=== PATIENT | male | born 1980 | race Caucasian/White ===

== ENCOUNTER 2020-04-03 10:02 | Outpatient (REF) | payer OTHER, SELFPAY ==
[2020-04-03 19:08] LABS: Anion Gap 8.4 mmol/L (3-11); BUN 14 mg/dL (7-18); CO2 28.6 mmol/L (21.0-32.0); CREATININE 1.19 mg/dL (0.70-1.30); Calcium 9.4 mg/dL (8.5-10.1); Calculated LDL 110 mg/dL (<100); Chloride 103 mmol/L (98-107); Cholesterol 178 mg/dL (<200); Glucose 111 mg/dL (74-106); HDL Cholesterol 50 mg/dL (40-60); Potassium 4.6 mmol/L (3.5-5.1); Sodium 140 mmol/L (136-145); Triglyceride 92 mg/dL (<150)
== END 2020-04-03 10:22 ==
LOC: NCHCN 10:02
PROVIDERS: PCP Nurse Practitioner; Visit Provider Physician Assistant
DX: Z00.00 Encounter for general adult medical examination without abnormal findings (principal); Z13.220 Encounter for screening for lipoid disorders; Z13.228 Encounter for screening for other metabolic disorders
CPT/HCPCS: 80048; 80061

== ENCOUNTER 2021-05-04 18:54 | Outpatient (REF) | payer SELFPAY ==
[2021-05-04 19:28] LABS: Hemoglobin A1C 5.4 % (<5.7)
== END 2021-05-04 18:55 | disposition home or self-care (01) ==
LOC: NCHCN 18:54
PROVIDERS: PCP Nurse Practitioner; Visit Provider Physician Assistant
DX: R73.9 Hyperglycemia, unspecified (principal)
CPT/HCPCS: 83036

== ENCOUNTER 2021-12-15 16:04 | Outpatient (REF) | payer SELFPAY ==
[2021-12-15 21:45] LABS: HCT 42.8 % (40.0-50.0); HGB 14.4 g/dL (13.5-17.5); MCH 28.4 pg (27.0-33.0); MCHC 33.6 % (32.0-36.0); MCV 84 fL (80-95); MPV 11.8 fL (8.0-11.0); Platelet Count 170 10^3/uL (130-400); RBC 5.07 10^6/uL (4.36-5.78); RDW 13.2 % (11.8-14.1); RDW-SD 40.7 fL
== END 2021-12-15 16:05 | disposition home or self-care (01) ==
LOC: NCHCN 16:04
PROVIDERS: PCP Nurse Practitioner; Visit Provider Physician Assistant
DX: L08.9 Local infection of the skin and subcutaneous tissue, unspecified (principal)
CPT/HCPCS: 85027

== ENCOUNTER 2024-05-20 10:39 | Day surgery (SDC) | payer BC, SELFPAY ==
--- NOTE | 2024-05-19 18:55 | W.PM.DSUDISC ---
Date of service: 05/20/24 Discharge Plan Disposition Patient Disposition: Home Condition: Good Discharge Details Reason For Visit: screening colonoscopy Attending Provider: Jamel Diallo Primary Care Provider: Houston Sellers Home Meds and New Rx's Prescriptions: Continued bupropion HCl 150 mg tablet extended release 24 hr 150 mg PO QAM Discontinued bisacodyl [Dulcolax (bisacodyl)] 5 mg tablet,delayed release (DR/EC) 5 mg PO ONCE Qty: 4 0RF Rx Instructions: Take per colonoscopy instructions provided by ordering providers office polyethylene glycol 3350 17 gram/dose powder 17 g PO ONCE Qty: 238 0RF Rx Instructions: Take per colonoscopy instructions provided by ordering providers office Discharge Instructions Additional Instructions: Graceke, it is great meeting you today, and I hope you are comfortable through the colonoscopy. Everything is totally normal. You should consider another screening colonoscopy in 10 years as part of routine health maintenance. 1. If tolerated, consume a soft, low fiber diet for 1-2 days. 2[address] Do not drive, drink alcohol, operate machinery, make critical decisions, or do activities that require coordination or balance for 24 hours. 3. Because air was put into your colon during the procedure, expelling air from your rectum (passing gas or farting) is normal. 4. You may not have a bowel movement for 1-3 days because of the colonoscopy prep. This is normal. 5. Go directly to the emergency room if you notice any of the following: Develop chills (warm to touch), or if you have a thermometer and your temperature is above 101 Difficulty breathing or difficultly swallowing Persistent vomiting Severe abdominal pain, other than gas cramps Severe chest pain Black, tarry stools Any bleeding ? exceeding one tablespoon 6. Call your physician if the site where your intravenous was started becomes red, swollen, painful, and warm to touch. 7. Your physician has reviewed your pre-procedure medications. Please continue to take those medications as previously ordered. You will be given specific information/education regarding any changes to your medications before leaving. Activity:: Activity as Tolerated Diet:: As Tolerated Discharge Orders Discharge Orders: Discharge Order (Routine); Ordered 05/19/24 Ordered By: Jamel Diallo DS: Diagnosis Discharge Diagnosis (1) Screening for malignant neoplasm of colon: Status: Acute Asessment and Plan: Negative screening colonoscopy; follow-up in 10 years
--- NOTE | 2024-05-19 18:59 | W.COLOREPORT ---
Date of service: 05/20/24 Time of Service: 13:32 Colonoscopy Report Date of procedure: 05/20/24 Pre-op diagnosis general: screening colonoscopy Post-op diagnosis procedure note: other (Negative screening colonoscopy) Procedure: colonoscopy Surgeon: Jamel Diallo Anesthesia Type: General:No Airway Estimated blood loss (mL): 0 Pathology: none sent Complications: None Disposition: same day Indications: Grayson is a 43 year old man who needs a screening colonoscopy Prep: Miralax/Dulcolax Procedure Start Time: 13:01 Procedure End Time: 13:15 Retraction Time: 8 Findings: Negative screening colonoscopy Procedure Description: After the induction of anesthesia, and with the patient in left lateral decubitus position, I began by performing an external anorectal exam.? Perineum and skin were normal, as was the anal verge.? There was no evidence of external hemorrhoids.? Next, I performed a digital rectal exam.? I did appreciate any abnormal findings.? Next, I advanced a colonoscope into the rectal vault.? I performed retroflexion.? This appeared normal.? Using insufflation, I then advanced the colonoscope beyond the rectal folds and into the sigmoid colon before advancing towards the cecum.? The quality of the prep was excellent.? The scope was noted to be in the cecum by identification of the ileocecal valve and appendiceal orifice.? I then began withdrawing the colonoscope using repeated irrigation as necessary for full evaluation of the colonic mucosa. ?Once the scope was withdrawn to the level of the rectum, great care was taken to examine portions of the rectal folds.? I saw no signs of tumors, polyps, or any other pathology. Finally, the scope was withdrawn and the patient was brought to the same-day surgery recovery unit as the anesthetic wore off. ?The findings and instructions were shared with the patient prior to discharge. [place] Bowel Prep [place] Bowel Prep Right Colon: 3 Left Colon: 3 Transverse Colon: 3 Total Score: 9
[2024-05-20 10:48] VITALS: BP 121/83; PULSE 67; RESP 16; TEMP 36.4; O2SAT 99
[2024-05-20] MEDS: Lactated Ringers 1,000 ML 80 ML IV (11:08)
--- NOTE | 2024-05-20 11:29 | W.ANESPRE ---
General Info Date of Service Date Performed: 05/20/24 Height: 5 ft 6 in Weight: 94.2 kg Body Mass Index (BMI): 33.5 Surgical Procedure: Operation Date: 05/20/24 12:20 Proposed Procedure Side Surgeon kera Diallo MD Meds Allergies and Home Medications Allergies Allergy/AdvReac Type Severity Reaction Status Date / Time No Known Allergies Allergy Verified 05/20/24 10:59 Home Medication ?Medication ?Instructions ?Recorded bupropion HCl 150 mg 24 hr tablet, 150 mg PO QAM 05/09/24 extended release Current Visit Medications: Current Medications Generic Name Dose Route Start Last Admin Trade Name Freq PRN Reason Stop Dose Admin Ringer's Solution 1,000 mls @ 80 mls/hr 05/20/24 10:00 05/20/24 11:08 IV 06/19/24 09:59 80 mls/hr INFUSION DHAVAL Administration IV Miscellaneous Supplies 1 each 05/20/24 06:00 Iv Access IV 06/16/24 23:59 DIRECTED DHAVAL Ondansetron HCl 4 mg 05/19/24 19:00 Ondansetron 4 Mg/2 Ml Vial IVP 06/18/24 18:59 Q4H PRN PRN Nausea / Vomiting Sodium Chloride 0 ml 05/20/24 06:00 Normal Saline Flush 10 Ml Syr IV 06/16/24 23:59 PRN PRN Sodium Chloride 0 ml 05/20/24 06:00 Normal Saline 10 Ml Vial IJ 06/16/24 23:59 DIRECTED PRN Sterile Water 0 ml 05/20/24 06:00 Water,Injection,Sterile 10 Ml Vial IJ 06/16/24 23:59 DIRECTED PRN PFSH Active Problems Active Problems: Problem Status Onset Code Screening for malignant neoplasm of colon Acute Z12.11 Chronic depression Acute F32.A Medical History Medical History Neck pain Surgical History Surgical History Hx of appendectomy Tobacco Smoking/Tobacco Use Status: Never Alcohol Alcohol Intake: current Alcohol intake frequency: a few times a week Substance Use Substance use: Never Substance use type: does not use Vital Signs and Lab Results Vital Signs Most Recent Vital Signs in EMR: Most Recent Vital Signs Temp Pulse Resp BP Pulse Ox 36.4 C L 67 16 121/83 99 05/20/24 10:48 05/20/24 10:48 05/20/24 10:48 05/20/24 10:48 05/20/24 10:48 Lab Results Blood Type / Crossmatch: No Data to Display Complete Blood Count: No Data to Display Complete Metabolic Panel: No Data to Display Liver Function Panel: No Data to Display Coagulation Panel: No Data to Display Cardiac Panel: No Data to Display Arterial Blood Gas: No Data to Display Venous Blood Gas: No Data to Display Pancreas Panel: No Data to Display Thyroid Panel: No Data to Display Infectious Disease: No Data to Display Blood Cultures: No Data to Display Toxicology Panel: No Data to Display Anesthesia Assessment and Plan Anesthesia History Personal History: No History of Anesthesia Complications Family History: No Family History of Anesthesia Complications Exercise Tolerance Exercise Tolerance: Metabolic Equivalents>4 Pertinent Negatives Pertinent Negatives: No Symptoms of GERD Cardiac & Pulmonary Exam Cardiac Exam: Normal S1/S2 Heart Sounds Pulmonary Exam: Clear Bilateral Breath Sounds Implantable Cardiac Device Does patient have a Pacemaker or an ICD?: No Airway Exam Known Difficult Airway: No Mallampati Class: 1 Mouth Opening: Normal (> 3cm) Thyromental Distance: Greater than 3 cm Facial Hair: Full [place] Neck Range of Motion: Full ROM Neck Circumference: Normal Teeth Condition: Normal Dentition ASA Classification ASA Score: ASA 2 Emergency Case?: No NPO Status NPO Status: NPO Clears >2 hours, Solids >8 hours Anesthesia Plan Resuscitation Status: Full Code Anesthesia Technique: General Anesthesia Airway Planned: Natural Airway Monitors Used: Standard Monitors
[2024-05-20 11:31] VITALS: BMI 33.5
[2024-05-20 13:20] VITALS: BP 107/79; PULSE 76; RESP 16; TEMP 36.3; O2SAT 96
[2024-05-20 13:48] VITALS: BP 108/73; PULSE 67; RESP 14; TEMP 36.3; O2SAT 96
--- NOTE | 2024-05-20 13:48 | W.ANESPOSTOP ---
Postoperative Evaluation Date, Time and Location Date Performed: 05/20/24 Time Performed: 13:18 Patient Location: Day Surgery Unit Vital Signs Most Recent Imported Vital Signs: Most Recent Vital Signs Temp Pulse Resp BP Pulse Ox 36.3 C L 76 16 107/79 96 05/20/24 13:20 05/20/24 13:20 05/20/24 13:20 05/20/24 13:20 05/20/24 13:20 Pain Score Most Recent Pain Score: Most Recent Pain Score Pain Level 2 05/20/24 13:20 Assessment Mental Status: Awake (Alert & Oriented to Patient Baseline) Airway and Respiratory Function: Patent airway with normal (patient baseline) respiratory exam Cardiovascular Function: Hemodynamically Stable Hydration Status: Adequately Hydrated Nausea & Vomiting: No Nausea or Vomiting Pain: Pt. Denies Any Pain Peripheral Nerve Block: Patient did not receive a nerve block
--- NOTE | 2024-05-20 15:19 | W.ANESPOSTOP ---
Postoperative Evaluation Date, Time and Location Date Performed: 05/20/24 Time Performed: 14:30 Patient Location: Day Surgery Unit Vital Signs Most Recent Imported Vital Signs: Most Recent Vital Signs Temp Pulse Resp BP Pulse Ox 36.3 C L 67 14 108/73 96 05/20/24 13:48 05/20/24 13:48 05/20/24 13:48 05/20/24 13:48 05/20/24 13:48 Most Recent Vital Signs Temp Pulse Resp BP Pulse Ox 36.3 C L 76 16 107/79 96 05/20/24 13:20 05/20/24 13:20 05/20/24 13:20 05/20/24 13:20 05/20/24 13:20 Pain Score Most Recent Pain Score: Most Recent Pain Score Pain Level 2 05/20/24 13:48 Assessment Mental Status: Awake (Alert & Oriented to Patient Baseline) Airway and Respiratory Function: Patent airway with normal (patient baseline) respiratory exam Cardiovascular Function: Hemodynamically Stable Hydration Status: Adequately Hydrated Nausea & Vomiting: No Nausea or Vomiting Pain: Pt. Denies Any Pain Peripheral Nerve Block: Patient did not receive a nerve block
== END 2024-05-20 14:10 | disposition home or self-care (01) ==
LOC: SUR 10:40
PROVIDERS: PCP Physician Assistant; Visit Provider Surgery
PROC: 0DJD8ZZ Inspection of Lower Intestinal Tract, Via Natural or Artificial Opening Endoscopic (ICD-10-PCS; CPT 45378; principal; 2024-05-20 12:15)
DX: Z12.11 Encounter for screening for malignant neoplasm of colon (principal)
CPT/HCPCS: 45378; J2704

== ENCOUNTER 2024-09-19 14:14 | Outpatient (REF) | payer BC, SELFPAY ==
[2024-09-19 19:50] LABS: Hemoglobin A1C 5.2 % (<5.7)
[2024-09-19 19:56] LABS: ALT 31 U/L (16-63); AST 18 U/L (15-37); Albumin 4.5 g/dL (3.4-5.0); Alkaline Phosphatase 93 U/L (46-116); Anion Gap 8.8 mmol/L (3-11); BUN 15 mg/dL (7-18); Bilirubin, Total 0.7 mg/dL (0.2-1.0); CO2 28.2 mmol/L (21.0-32.0); Calcium 9.5 mg/dL (8.5-10.1); Calculated LDL 100 mg/dL (<100); Chloride 101 mmol/L (98-107); Cholesterol 169 mg/dL (<200); Glucose 90 mg/dL (74-106); HDL Cholesterol 55 mg/dL (>or=40); Potassium 4.2 mmol/L (3.5-5.1); Sodium 138 mmol/L (136-145); Total Protein 7.1 g/dL (6.4-8.2); Triglyceride 73 mg/dL (<150)
== END 2024-09-19 14:15 | disposition home or self-care (01) ==
LOC: NCHCN 14:14
PROVIDERS: PCP Physician Assistant; Visit Provider Physician Assistant
DX: E78.5 Hyperlipidemia, unspecified (principal); Z13.1 Encounter for screening for diabetes mellitus
CPT/HCPCS: 80053; 80061; 83036